=== PATIENT | female | born 1995 | race African-American/Black ===

== ENCOUNTER 2017-05-21 23:40 | Emergency (ER) | payer OTHER ==
[~2017-05-21] VITALS: Ht 162.6 cm; Wt 86.2 kg
[~2017-05-21 23:40] MED LIST: NKM
[2017-05-21 23:50] VITALS: BP 112/62
[2017-05-22 00:24] LABS: APPEARANCE,URINE SLIGHTLY CLOUDY; BILIRUBIN, URINE NEGATIVE (NEGATIVE); GLUCOSE, URINE (UA) NEGATIVE (NEGATIVE); KETONES,URINE 3+ (NEGATIVE); LEUKOCYTE ESTERASE ,URINE 3+ (NEGATIVE); NITRITE,URINE NEGATIVE (NEGATIVE); PH,URINE 6 (4.5-8.0); PROTEIN,URINE 2+ (NEGATIVE); UROBILINOGEN,URINE 1 MG/DL (0.0-1.0)
[2017-05-22] MEDS ORDERED: ZOVIRAX200 MG GT (00:36)
[2017-05-22 00:39] LABS: COLOR,URINE YELLOW
[2017-05-22] MEDS ORDERED: AZITHROMYCIN500 MG ORAL (00:41)
[2017-05-22] MEDS ORDERED: NITROFURANTOIN100 M2 ORAL (00:42)
[2017-05-22] MEDS ORDERED: Azithromycin 250mg tab ORAL ONE (00:45)
[2017-05-22 00:52] VITALS: BP 112/62
--- NOTE | 2017-05-22 02:37 | Emergency Room Report ---
History of Present Illness General Chief Complaint: Female Urogenital Problems Source: Patient Present Illness HPI 22-year-old female presenting with ulcers and genitals for one week, also with dysuria and fever. States that she is monogamous with one partner however does not know he's cheating. Is not using any protection. Also complaining of vaginal discharge, white/espinal Allergies: Coded Allergies: No Known Allergies (Unverified , 05/21/17) Patient History Past Medical History: see triage record Past Surgical History: none Pertinent Family History: none Last Menstrual Period: may 04 Now: No Reviewed Nursing Documentation: PMH: Agreed, PSxH: Agreed Nursing Documentation-PMH Past Medical History: No Stated History Review of Systems All Other Systems: negative except mentioned in HPI Physical Exam Vital Signs Date Time Temp Pulse Resp B/P (MAP) Pulse Ox O2 Delivery O2 Flow Rate FiO2 05/21/17 23:46 100.0 116 16 112/62 98 Sp02 EP Interpretation: reviewed, normal General Appearance: normal inspection, well appearing, no apparent distress, alert, GCS 15, non-toxic Head: normocephalic, atraumatic Eyes: bilateral eye normal inspection, bilateral eye PERRL, bilateral eye EOMI ENT: normal ENT inspection, normal pharynx, normal voice, moist mucus membranes Neck: normal inspection, full range of motion, supple Respiratory: normal inspection, lungs clear, normal breath sounds, no respiratory distress, no retraction, no wheezing, speaking full sentences, chest symmetrical Cardiovascular #1: normal inspection, regular rate, rhythm, no edema, normal capillary refill Cardiovascular #2: 2+ radial (R), 2+ radial (L) Gastrointestinal: normal inspection, non tender, soft, non-distended, no guarding Genitourinary: other - Vesicles noted on the labia majora, with some ulcerations, cervix with erythema and copious espinal white discharge, CMT no adnexal tenderness Musculoskeletal: normal inspection, back normal, normal range of motion, non- tender Neurologic: normal inspection, alert, oriented x3, responsive, motor strength/ tone normal, sensory intact, normal gait, speech normal Psychiatric: normal inspection, judgement/insight normal, memory normal Skin: normal inspection, normal color, no rash, warm/dry, well hydrated, normal turgor Medical Decision Making Diagnostic Impression: Primary Impression: Concern about STD in female without diagnosis Additional Impression: Genital herpes ER Course 22-year-old female with vaginal discharge, dysuria DDX: Appears to be genital herpes on exam UTI versus STD Plan: UA ER course: Patient empirically treated for STD given ceftriaxone, azithromycin prescription given to patient Disposition: Patient is to be discharged to home. Prescriptions given are acyclovir and azithromycin Patient is instructed to follow up with their [employer] within 5 days. Patient is instructed to practice safe sex and to have her partners tested for STDs Strict return precautions discussed with patient such as fever, chills, worsening/severe pain, nausea, vomiting, which may indicate severe illness. Patient verbalizes understanding and agrees with plan. Please note that this Emergency Department Report was dictated using [employer] supervisor technology software, occasionally this can lead to erroneous entry secondary to interpretation by the dictation equipment Last Vital Signs Date Time Temp Pulse Resp B/P (MAP) Pulse Ox O2 Delivery O2 Flow Rate FiO2 05/22/17 00:52 100.4 76 20 112/62 98 Disposition: HOME, SELF-CARE Condition: Stable Scripts Nitrofurantoin Monohyd/M-Cryst* (MACROBID 100 MG*) 100 Mg Capsule 100 MG ORAL EVERY 12 HOURS for 7 Days, #21 CAP 0 Refills Prov: Janes Purdy M.D. 05/22/17 Azithromycin (AZITHROMYCIN) 500 Mg Tablet 1000 MG ORAL ONCE, #2 TAB 0 Refills Prov: Janes Purdy M.D. 05/22/17 Acyclovir (Acyclovir) 200 Mg Capsule 200 MG GT FIVE TIMES A DAY for 7 Days, #35 CAP 0 Refills Prov: Janes Purdy M.D. 05/22/17 Referrals: [facility],REFERRING (PCP) Patient Instructions: Urinary Tract Infection, Sexually Transmitted Disease, [id number], Genital Herpes Janes Purdy M.D. May 22, 2017 02:37
--- NOTE | 2017-05-22 02:37 | Emergency Room Report ---
History of Present Illness General Chief Complaint: Female Urogenital Problems Source: Patient Present Illness HPI 22-year-old female presenting with ulcers and genitals for one week, also with dysuria and fever. States that she is monogamous with one partner however does not know he's cheating. Is not using any protection. Also complaining of vaginal discharge, white/espinal Allergies: Coded Allergies: No Known Allergies (Unverified , 05/21/17) Patient History Past Medical History: see triage record Past Surgical History: none Pertinent Family History: none Last Menstrual Period: may 04 Now: No Reviewed Nursing Documentation: PMH: Agreed, PSxH: Agreed Nursing Documentation-PMH Past Medical History: No Stated History Review of Systems All Other Systems: negative except mentioned in HPI Physical Exam Vital Signs Date Time Temp Pulse Resp B/P (MAP) Pulse Ox O2 Delivery O2 Flow Rate FiO2 05/21/17 23:46 100.0 116 16 112/62 98 Sp02 EP Interpretation: reviewed, normal General Appearance: normal inspection, well appearing, no apparent distress, alert, GCS 15, non-toxic Head: normocephalic, atraumatic Eyes: bilateral eye normal inspection, bilateral eye PERRL, bilateral eye EOMI ENT: normal ENT inspection, normal pharynx, normal voice, moist mucus membranes Neck: normal inspection, full range of motion, supple Respiratory: normal inspection, lungs clear, normal breath sounds, no respiratory distress, no retraction, no wheezing, speaking full sentences, chest symmetrical Cardiovascular #1: normal inspection, regular rate, rhythm, no edema, normal capillary refill Cardiovascular #2: 2+ radial (R), 2+ radial (L) Gastrointestinal: normal inspection, non tender, soft, non-distended, no guarding Genitourinary: other - Vesicles noted on the labia majora, with some ulcerations, cervix with erythema and copious espinal white discharge, CMT no adnexal tenderness Musculoskeletal: normal inspection, back normal, normal range of motion, non- tender Neurologic: normal inspection, alert, oriented x3, responsive, motor strength/ tone normal, sensory intact, normal gait, speech normal Psychiatric: normal inspection, judgement/insight normal, memory normal Skin: normal inspection, normal color, no rash, warm/dry, well hydrated, normal turgor Medical Decision Making Diagnostic Impression: Primary Impression: Concern about STD in female without diagnosis Additional Impression: Genital herpes ER Course 22-year-old female with vaginal discharge, dysuria DDX: Appears to be genital herpes on exam UTI versus STD Plan: UA ER course: Patient empirically treated for STD given ceftriaxone, azithromycin prescription given to patient Disposition: Patient is to be discharged to home. Prescriptions given are acyclovir and azithromycin Patient is instructed to follow up with their [employer] [facility] within 5 days. Patient is instructed to practice safe sex and to have her partners tested for STDs Strict return precautions discussed with patient such as fever, chills, worsening/severe pain, nausea, vomiting, which may indicate severe illness. Patient verbalizes understanding and agrees with plan. Please note that this Emergency Department Report was dictated using [employer] tender technology software, occasionally this can lead to erroneous entry secondary to interpretation by the dictation equipment Last Vital Signs Date Time Temp Pulse Resp B/P (MAP) Pulse Ox O2 Delivery O2 Flow Rate FiO2 05/22/17 00:52 100.4 76 20 112/62 98 Disposition: HOME, SELF-CARE Condition: Stable Scripts Nitrofurantoin Monohyd/M-Cryst* (MACROBID 100 MG*) 100 Mg Capsule 100 MG ORAL EVERY 12 HOURS for 7 Days, #21 CAP 0 Refills Prov: Janes Purdy M.D. 05/22/17 Azithromycin (AZITHROMYCIN) 500 Mg Tablet 1000 MG ORAL ONCE, #2 TAB 0 Refills Prov: Janes Purdy M.D. 05/22/17 Acyclovir (Acyclovir) 200 Mg Capsule 200 MG GT FIVE TIMES A DAY for 7 Days, #35 CAP 0 Refills Prov: Janes Purdy M.D. 05/22/17 Referrals: [facility],REFERRING (PCP) Patient Instructions: Urinary Tract Infection, Sexually Transmitted Disease, [id number], Genital Herpes Janes Purdy M.D. May 22, 2017 02:37
--- NOTE | 2017-05-22 02:37 | Emergency Room Report ---
History of Present Illness General Chief Complaint: Female Urogenital Problems Source: Patient Present Illness HPI 22-year-old female presenting with ulcers and genitals for one week, also with dysuria and fever. States that she is monogamous with one partner however does not know he's cheating. Is not using any protection. Also complaining of vaginal discharge, white/espinal Allergies: Coded Allergies: No Known Allergies (Unverified , 05/21/17) Patient History Past Medical History: see triage record Past Surgical History: none Pertinent Family History: none Last Menstrual Period: may 04 Now: No Reviewed Nursing Documentation: PMH: Agreed, PSxH: Agreed Nursing Documentation-PMH Past Medical History: No Stated History Review of Systems All Other Systems: negative except mentioned in HPI Physical Exam Vital Signs Date Time Temp Pulse Resp B/P (MAP) Pulse Ox O2 Delivery O2 Flow Rate FiO2 05/21/17 23:46 100.0 116 16 112/62 98 Sp02 EP Interpretation: reviewed, normal General Appearance: normal inspection, well appearing, no apparent distress, alert, GCS 15, non-toxic Head: normocephalic, atraumatic Eyes: bilateral eye normal inspection, bilateral eye PERRL, bilateral eye EOMI ENT: normal ENT inspection, normal pharynx, normal voice, moist mucus membranes Neck: normal inspection, full range of motion, supple Respiratory: normal inspection, lungs clear, normal breath sounds, no respiratory distress, no retraction, no wheezing, speaking full sentences, chest symmetrical Cardiovascular #1: normal inspection, regular rate, rhythm, no edema, normal capillary refill Cardiovascular #2: 2+ radial (R), 2+ radial (L) Gastrointestinal: normal inspection, non tender, soft, non-distended, no guarding Genitourinary: other - Vesicles noted on the labia majora, with some ulcerations, cervix with erythema and copious espinal white discharge, CMT no adnexal tenderness Musculoskeletal: normal inspection, back normal, normal range of motion, non- tender Neurologic: normal inspection, alert, oriented x3, responsive, motor strength/ tone normal, sensory intact, normal gait, speech normal Psychiatric: normal inspection, judgement/insight normal, memory normal Skin: normal inspection, normal color, no rash, warm/dry, well hydrated, normal turgor Medical Decision Making Diagnostic Impression: Primary Impression: Concern about STD in female without diagnosis Additional Impression: Genital herpes ER Course 22-year-old female with vaginal discharge, dysuria DDX: Appears to be genital herpes on exam UTI versus STD Plan: UA ER course: Patient empirically treated for STD given ceftriaxone, azithromycin prescription given to patient Disposition: Patient is to be discharged to home. Prescriptions given are acyclovir and azithromycin Patient is instructed to follow up with their [employer] within 5 days. Patient is instructed to practice safe sex and to have her partners tested for STDs Strict return precautions discussed with patient such as fever, chills, worsening/severe pain, nausea, vomiting, which may indicate severe illness. Patient verbalizes understanding and agrees with plan. Please note that this Emergency Department Report was dictated using [employer] product purchaser technology software, occasionally this can lead to erroneous entry secondary to interpretation by the dictation equipment Last Vital Signs Date Time Temp Pulse Resp B/P (MAP) Pulse Ox O2 Delivery O2 Flow Rate FiO2 05/22/17 00:52 100.4 76 20 112/62 98 Disposition: HOME, SELF-CARE Condition: Stable Scripts Nitrofurantoin Monohyd/M-Cryst* (MACROBID 100 MG*) 100 Mg Capsule 100 MG ORAL EVERY 12 HOURS for 7 Days, #21 CAP 0 Refills Prov: Janes Purdy M.D. 05/22/17 Azithromycin (AZITHROMYCIN) 500 Mg Tablet 1000 MG ORAL ONCE, #2 TAB 0 Refills Prov: Janes Purdy M.D. 05/22/17 Acyclovir (Acyclovir) 200 Mg Capsule 200 MG GT FIVE TIMES A DAY for 7 Days, #35 CAP 0 Refills Prov: Janes Purdy M.D. 05/22/17 Referrals: [facility],REFERRING (PCP) Patient Instructions: Urinary Tract Infection, Sexually Transmitted Disease, [id number], Genital Herpes Janes Purdy M.D. May 22, 2017 02:37
== END 2017-05-22 00:52 | disposition home or self-care (01) ==
LOC: EMR 23:55
DX: A60.00 Herpesviral infection of urogenital system, unspecified (principal)
CPT/HCPCS: 81003; 81025; 87086; 96372; 99284; J0696

== ENCOUNTER 2018-05-04 02:59 | Emergency (ER) | payer OTHER ==
[~2018-05-04] VITALS: Ht 162.6 cm; Wt 74.4 kg
[~2018-05-04 02:59] MED LIST changes: +AZITHROMYCIN500 MG ORAL; +NITROFURANTOIN100 M2 ORAL; +ZOVIRAX200 MG GT
[2018-05-04 03:10] VITALS: BP 117/72
[2018-05-04] MEDS ORDERED: Norco 5mg/325mg tab ORAL ONE (03:30)
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
[2018-05-04] MEDS ORDERED: Lidocaine 1% Plain 30 ml INJ ONE (04:00)
[2018-05-04] MEDS ORDERED: HYDROCODON-ACE1 EA15 ORAL (04:44)
[2018-05-04] MEDS ORDERED: CEPHALEXIN500 MG ORAL (04:44)
[2018-05-04] MEDS ORDERED: IBUPROFEN600 MG ORAL (04:44)
[2018-05-04 04:50] VITALS: BP 117/72
--- NOTE | 2018-05-04 11:22 | Diagnostic Imaging Report ---
Indication: Headache and head trauma Technique: Contiguous 5 mm thick transaxial imaging of the head obtained in a Siemens Sensation [address] scanner. Soft tissue and bone windows generated. Automatic Exposure Control was utilized. Total Dose length Product (DLP): 1316.[address] Dose Index Volume (CTDIvol): 70.38 mGy Comparison: none Findings: The size and configuration of the cortical sulci, basal cisterns, and ventricles are within normal limits for age. There is no mass effect, midline shift, or edema identified. There is no evidence of acute hemorrhage or abnormal intra-axial or extra-axial fluid collections. The bones and soft tissues are unremarkable. Impression: No mass effect, edema or acute bleed. The CT scanner at [facility] is accredited by the [employer] and the scans are performed using dose optimization techniques as appropriate to a performed exam including Automatic Exposure control.
--- NOTE | 2018-05-04 12:44 | Diagnostic Imaging Report ---
Indication: Pain Forearm pain Findings: 2 views of the left forearm were obtained. No acute fractures, malalignment, erosions or periostitis are identified. Bone mineralization is within normal limits. Soft tissues are unremarkable. Impression: Negative for acute injury.
== END 2018-05-04 04:50 | disposition home or self-care (01) ==
LOC: EMR 03:45
DX: S00.83XA Contusion of other part of head, initial encounter (principal); S01.511A Laceration without foreign body of lip, initial encounter; S02.5XXA Fracture of tooth (traumatic), initial encounter for closed fracture; S00.81XA Abrasion of other part of head, initial encounter; S50.12XA Contusion of left forearm, initial encounter; W05.1XXA Fall from non-moving nonmotorized scooter, initial encounter; Y92.9 Unspecified place or not applicable
CPT/HCPCS: 12011; 70450; 73090; 99284; J2001; Z7502